=== PATIENT | male | born 1970 | race Caucasian/White ===

== ENCOUNTER 2017-05-25 19:08 | Emergency (ER) | payer OTHER ==
[~2017-05-25] VITALS: Ht 193 cm; Wt 113.4 kg
[~2017-05-25 19:08] MED LIST: 'PARAFON FORTE500 M1 PO; AMBIEN10 M1 PO; AMOXICILLIN500 MG PO; ANAPROX DS550 MG PO; ASPIRIN LOW DOS81 MG PO; ASPIRIN162 MG PO; DAYPRO600 M1 PO; HYDROCHLOROTH12.5 M3 PO; HYDROCODONE BIT1 T11 PO; IBU-8800 MG PO; METOPROLOL25 MG PO; NAPROSYN500 MG PO; ROBAXIN750 MG PO; VICODIN 500 MG-1 TAB PO; ZANTAC 150150 MG PO; ZOFRAN4 MG PO
[2017-05-25 19:16] VITALS: BP 158/78
== END 2017-05-26 02:32 | disposition home or self-care (01) ==
LOC: ED 19:08
DX: S91.031A Puncture wound without foreign body, right ankle, initial encounter (principal); L03.115 Cellulitis of right lower limb; F17.200 Nicotine dependence, unspecified, uncomplicated; Z23 Encounter for immunization; Z79.899 Other long term (current) drug therapy; W22.8XXA Striking against or struck by other objects, initial encounter; Y93.89 Activity, other specified; Y92.89 Other specified places as the place of occurrence of the external cause; Y99.8 Other external cause status

== ENCOUNTER 2018-04-13 11:09 | Emergency (ER) | payer OTHER ==
[~2018-04-13] VITALS: Ht 193 cm; Wt 112.5 kg
[2018-04-13 11:11] VITALS: BP 144/77
== END 2018-04-13 12:22 | disposition home or self-care (01) ==
LOC: ED 11:09
DX: S39.013A Strain of muscle, fascia and tendon of pelvis, initial encounter (principal); R03.0 Elevated blood-pressure reading, without diagnosis of hypertension; F17.200 Nicotine dependence, unspecified, uncomplicated; Z79.82 Long term (current) use of aspirin; Z98.890 Other specified postprocedural states; X58.XXXA Exposure to other specified factors, initial encounter; Y93.89 Activity, other specified; Y92.89 Other specified places as the place of occurrence of the external cause; Y99.8 Other external cause status

== ENCOUNTER 2018-06-27 13:06 | Emergency (ER) | payer OTHER ==
[~2018-06-27] VITALS: Ht 193 cm; Wt 113.4 kg
[2018-06-27 13:09] VITALS: BP 160/88
[2018-06-27] MEDS ORDERED: ATORVASTATIN CA20 M1 PO (13:14)
[2018-06-27] MEDS ORDERED: LISINOPRIL-HCT1 EACH PO (13:14)
[2018-06-27] MEDS ORDERED: GOOD NEIGHBOR M25 M1 PO (13:57)
== END 2018-06-27 14:04 | disposition home or self-care (01) ==
LOC: ED 13:06
DX: H81.10 Benign paroxysmal vertigo, unspecified ear (principal); I10 Essential (primary) hypertension; G89.29 Other chronic pain; F17.210 Nicotine dependence, cigarettes, uncomplicated; Z79.899 Other long term (current) drug therapy; Z90.49 Acquired absence of other specified parts of digestive tract

== ENCOUNTER 2019-01-02 16:16 | Inpatient (IN) | payer OTHER ==
[~2019-01-02] VITALS: Ht 193 cm; Wt 120.4 kg
--- NOTE | ~2019-01-02 | EKG ---
[place], [place] ELECTROCARDIOGRAM REPORT NAME: DAYTON LOPES UNIT #: [id number] ROOM: 405 DOCTOR: GRAY DRAFT REPORT BIRTHDATE: [birth year] [facility] Test Date: 2019-01-02 Test Time: 23:09:09 Pat Name: DAYTON LOPES Department: Room: 405 Gender: M Director Of Development And Marketing: SS RESP : 1970 Requested By: MARILOU GUERRA PA-C Order Number: [id number] Reading MD: Carola Ornelas Measurements Intervals [place] Rate: 72 P: 17 GA: 219 QRS: 46 QRSD: 112 T: 49 QT: 417 QTc: 457 Interpretive Statements Sinus rhythm Prolonged [place] interval Borderline intraventricular conduction delay No previous ECG available for comparison Electronically Signed On 01-04-2019 11:03:25 PDT by Carola Ornelas CM:EKGRPT:ELECTROCARDIOGRAM REPORT [id number] 1103 MARILOU GUERRA PA-C EPIPHANY DRAFT REPORT MARILOU GUERRA PA-C
--- NOTE | ~2019-01-02 | CON ---
[place], [place] REPORT OF CONSULTATION [id number] UN[facility] #: [id number] ROOM: 405 DOCTOR: ROBERTO TORRESMAYANK BIRTHDATE: [birth year] DOS: 01/03/2019 REASON FOR CONSULTATION: Abnormal CT chest with coronary calcification and also intermittent chest pains. HISTORY OF PRESENT ILLNESS: The patient is a 48-year-old gentleman with a history of hypertension, dyslipidemia presented to the Emergency Room with intermittent sharp chest pain for the past 2-3 days. This pain comes with moving his left arm and with rest, otherwise with exertion. This pain also gets worse with deep breath. There is no radiation. The patient had a left ulnar nerve surgery recently. No associated symptoms with the chest pains. No shortness of breath. No PND, no orthopnea, but the patient did have occasional heart palpitations, but no dizziness. No fever or chills. No nausea, vomiting, or diarrhea. REVIEW OF SYSTEMS: Review of 10 systems negative except as mentioned above. PAST MEDICAL HISTORY: 1. Hypertension. 2. Dyslipidemia. 3. Non-morbid obesity. 4. Fatty liver. 5. History of deep venous thrombosis, non-provoked. PAST SURGICAL HISTORY: History of knee surgery, history of left ulnar nerve surgery. ALLERGIES TO MEDICATIONS: Reviewed. FAMILY HISTORY: Father has diabetes and heart failure. Mother, unknown history. The patient does not talk to her. SOCIAL HISTORY: The patient does smoke, does not use illicit drugs, and does not drink alcohol. HOME MEDICATIONS: Reviewed. PHYSICAL EXAMINATION: VITAL SIGNS: Blood pressure 146/72, pulse 74, respiration is 20. Weight 120.4 kilos, BMI 32.3. GENERAL: Alert, comfortable, in no acute distress. HEENT: Pupils round, equal. No jaundice. Tongue was moist and pharynx clear. NECK: Supple, no distended neck veins, no carotid bruit. CHEST: Symmetrical, nontender. LUNGS: Clear to auscultation bilaterally. HEART: Regular rhythm, no S3, no palpable thrills. ABDOMEN: Benign, nontender. Bowel sounds normal. EXTREMITIES: Showed no edema. Distal pulses palpable. SKIN: Warm and dry. No cyanosis, no clubbing. RECTAL: Deferred. [place], [place] REPORT OF CONSULTATION NAME: DAYTON LOPES UNIT #: [id number] ROOM: 405 DOCTOR: ROBERTO TORRES,MAYANK BIRTHDATE: [birth year] GENITOURINARY: Deferred. NEUROLOGIC: Alert, oriented. No focal neurologic deficit. MUSCULOSKELETAL: No joint tenderness or swelling. The patient had healed surgical scar at the left elbow. REVIEW OF THE DIAGNOSTIC TESTS: EKG showed sinus rhythm, first degree AV block. Cardiac enzymes were unremarkable. CBC is unremarkable. Hemoglobin A1c is 6.1. CT of the chest showed advanced coronary calcifications, no pulmonary emboli. IMPRESSION: 1. Intermittent chest pain, atypical, myocardial infarction ruled out. 2. Abnormal CT of the coronary calcifications. 3. Hypertension. 4. Tobacco use. 5. Non-morbid obesity. 6. Dyslipidemia. 7. Fatty liver by CAT scan. 8. History of deep venous thrombosis, unprovoked, postoperative. RECOMMENDATIONS: 1. Lexiscan stress test today to rule out ischemia due to his symptoms, CAD risk factors, and also abnormal CT showing coronary calcifications. 2. Risk factor modification, especially to diet, exercise, and weight loss as well as to quit smoking discussed. 3. If the stress test done and 2D echo unremarkable, the patient will be discharged home today. If the stress study showed irreversible ischemia, I would discusse with him regarding cardiac catheterization. 4. No family at bedside at the time of examination. MAYANK MEJIA MD CM:CONSTR:REPORT OF CONSULTATION 1608 01/04/19 0103 interface
--- NOTE | ~2019-01-02 | EKG ---
[place], [place] ELECTROCARDIOGRAM REPORT NAME: DAYTON LOPES UNIT #: [id number] ROOM: 405 DOCTOR: GRAY DRAFT REPORT BIRTHDATE: [birth year] [facility] Test Date: 2019-01-02 Test Time: 19:50:04 Pat Name: DAYTON LOPES Department: Room: 405 Gender: M Pediatric Dermatologist: Jenifer Tong : 1970 Requested By: MARILOU GUERRA PA-C Order Number: [id number] Reading MD: Carola Ornelas Measurements Intervals [place] Rate: 76 P: 32 [place]: 298 QRS: 40 QRSD: 117 T: 49 QT: 408 QTc: 459 Interpretive Statements Sinus rhythm Prolonged [place] interval Nonspecific intraventricular conduction delay No previous ECG available for comparison Electronically Signed On 01-04-2019 11:00:27 PDT by Carola Ornelas CM:EKGRPT:ELECTROCARDIOGRAM REPORT 1950 1100 MARILOU GUERRA PA-C EPIPHANY DRAFT REPORT MARILOU GUERRA PA-C
--- NOTE | ~2019-01-02 | ST ---
[place], [place] EXERCISE STRESS TEST REPORT NAME: DAYTON LOPES [facility] #: [id number] UNIT #: [id number] ROOM: 405 DOCTOR: ROBERTO TORRES,MAYANK BIRTHDATE: [birth year] DOS: 01/03/2019 LEXISCAN STRESS TEST REASON FOR TEST: Chest pain. PHYSICAL EXAMINATION NECK: Supple. LUNGS: Clear anteriorly. HEART: Regular. PROTOCOL: Lexiscan protocol. Maximum heart rate of 111 and peak blood pressure 134/70. SYMPTOMS: The patient is chest pain free. EKG: Resting EKG showed sinus rhythm. Stress EKG showed no ischemia, no arrhythmias. CONCLUSION: The patient is chest pain free. EKG nonischemic. POST-STRESS COMPLICATIONS: None. The patient received a total of 0.4 mg Lexiscan. MAYANK MEJIA MD CM:STRESS:EXERCISE STRESS TEST REPORT 1604 0044 MAYANK MEJIA MD
--- NOTE | ~2019-01-02 | EKG ---
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
[~2019-01-02 16:16] MED LIST changes: +ATORVASTATIN CA20 M1 PO; +GOOD NEIGHBOR M25 M1 PO; +LISINOPRIL-HCT1 EACH PO
--- NOTE | 2019-01-02 16:50 | NUR ---
PT TO ULTRASOUND VIA W/C.
--- NOTE | 2019-01-02 16:54 | NUR ---
EKG D/T ACS PROTOCOL. PT IS IN ULTRASOUND AT THIS TIME.
--- NOTE | 2019-01-02 17:10 | NUR ---
PT RETURNED TO ED FROM ULTRASOUND VIA W/C.
[2019-01-02 17:33] LABS: BASO # 0.1 10*3/uL (0.0-0.1); BASO % 0.9 % (0.0-1.0); EOS # 0.3 10*3/uL (0.0-0.4); EOS % 3.3 % (1.0-4.0); HEMATOCRIT 44.4 % (42.0-52.0); HEMOGLOBIN 15.1 g/dl (14.0-18.0); LYMPH # 3.1 10*3/uL (1.3-4.4); LYMPH % 34.6 % (27.0-41.0); MEAN CELL VOLUME 93.1 fl (80.0-94.0); MEAN CORPUSCULAR HGB 31.7 pg (27.0-31.0); MEAN PLATELET VOLUME 9.9 fl (9.6-12.3); MONO # 0.6 10*3/uL (0.1-1.0); MONO % 6.6 % (3.0-9.0); NEUT # 4.8 10*3/uL (2.3-7.9); NEUT % 54.3 % (47.0-73.0); PLATELET COUNT AUTOMATED 247 10*3/uL (130-400); RED BLOOD COUNT 4.77 10*6/uL (4.50-5.90); RED CELL DISTRI WIDTH 12.7 % (0-14.5); WHITE BLOOD COUNT 8.9 10*3/uL (4.8-10.8)
--- NOTE | 2019-01-02 17:48 | NUR ---
ACS PROTICOL WAS PUT IN ON PT. AFTER PT. WAS TAKEN TO ULTRA SOUND
[2019-01-02 18:48] LABS: INTERNATIONAL NORM RATIO 0.9 (2.0-3.5)
[2019-01-02 18:54] LABS: ALBUMIN 3.6 gm/dl (3.1-4.5); BUN 12 mg/dl (7-24); CHLORIDE 107 mmol/L (98-107); CREATININE 0.95 mg/dL (0.70-1.30); POTASSIUM 3.3 mmol/L (3.5-5.1); SGOT/AST 43 IU/L (3-35); SGPT/ALT 80 U/L (12-78); SODIUM 141 mmol/L (136-145)
[2019-01-02 18:58] LABS: ALKALINE PHOSPHATASE 59 U/L (45-117); TOTAL PROTEIN 6.2 gm/dL (6.4-8.2)
[2019-01-02 22:25] VITALS: BP 146/72
--- NOTE | 2019-01-02 22:25 | NUR ---
A 48, admitted to 4E, under the services of VARSHA Moss DO with a diagnosis of CALCIFICATION OF CORONARY ARTERY, CHEST PAIN. Chief complaint is CALF CRAMPS. Patient arrived via ambulatory from ER. Monitor applied. Initial assessment completed. Vital signs taken and recorded. VARSHA MOSS DO notified of admission to the unit. Orders received. See assessment for past medical history, medications and allergies. Patient and/or family oriented to unit. visitation policy reviewed. Clothing/patient valuable form completed. DANIEL IBRAHIM
--- NOTE | 2019-01-03 02:29 | NUR ---
DR. BROWN'S ANSWERING SERVICE NOTIFID OF CONSULT FOR PATIENT FOR CHEST PAIN.
[2019-01-03 06:29] LABS: BASO # 0.1 10*3/uL (0.0-0.1); EOS # 0.3 10*3/uL (0.0-0.4); EOS % 4.9 % (1.0-4.0); HEMATOCRIT 43.4 % (42.0-52.0); HEMOGLOBIN 14.7 g/dl (14.0-18.0); LYMPH # 2.5 10*3/uL (1.3-4.4); LYMPH % 36.8 % (27.0-41.0); MEAN CELL VOLUME 94.1 fl (80.0-94.0); MEAN CORPUSCULAR HGB 31.9 pg (27.0-31.0); MEAN CORPUSCULAR HGB CONC 33.9 g/dl (33.0-37.0); MEAN PLATELET VOLUME 9.8 fl (9.6-12.3); MONO # 0.6 10*3/uL (0.1-1.0); NEUT # 3.3 10*3/uL (2.3-7.9); NEUT % 48.2 % (47.0-73.0); PLATELET COUNT AUTOMATED 226 10*3/uL (130-400); RED BLOOD COUNT 4.61 10*6/uL (4.50-5.90); RED CELL DISTRI WIDTH 12.9 % (0-14.5); WHITE BLOOD COUNT 6.8 10*3/uL (4.8-10.8)
[2019-01-03 06:59] LABS: ALBUMIN 3.4 gm/dl (3.1-4.5); BUN 11 mg/dl (7-24); CHLORIDE 112 mmol/L (98-107); POTASSIUM 4.2 mmol/L (3.5-5.1); SODIUM 143 mmol/L (136-145)
[2019-01-03 07:10] LABS: ALKALINE PHOSPHATASE 54 U/L (45-117); CHOLESTEROL 122 mg/dL (<200); CREATININE 0.95 mg/dL (0.70-1.30); HDL CHOLESTEROL 35 mg/dl (40-60); LDL CHOLESTEROL 53 mg/dL (9-159); SGOT/AST 37 IU/L (3-35); SGPT/ALT 80 U/L (12-78); TOTAL PROTEIN 5.9 gm/dL (6.4-8.2); TRIGLYCERIDES 169 mg/dl (<150); VLDL CHOLESTEROL 34 mg/dL (6-40)
--- NOTE | 2019-01-03 09:05 | NUR ---
INFORMED CONSENT OBTAINED FOR A LEXISCAN STRESS TEST WITH DR. MEJIA. RESTING EKG NSR PROLONGED MS INTERVAL, HT RT OF 72 WITH A BP OF 106/68. LUNG SOUNDS CLEAR, POX 99% VIA RA. COMPLETED ONE MINUTE OF LEXISCAN PROTOCOL RECEIVING LEXISCAN 0.4 MG OVER 10 SECONDS. C/O "WARM" FEELING THAT WAS RELEIVED IN RECOVERY. HAD A PEAK HT RT OF 95 WITH A BP OF 130/70. LAST RECOVERY HT RT OF 92 WITH A BP OF 135/70. AWAIITNG NUCLEAR IMAGING IN STABLE CONDITION.
--- NOTE | 2019-01-03 10:45 | NUR ---
Maintenance Mechanic Telephone in to talk to patient. Patient states lives at home with . There are few steps in the home. Physician: eitan [facility] health services: none Patient's level of ADLs: INDEPENDENT Patient has working utilities: all working DME: none Follow-up physician's appointment after d/c: will be made by hospitalist nurse director upon discharge Does patient want to access PORTAL?: no Discharge plan discussed with patient's , patient was having testing done. patient lives at home with , he is independent in adls and ambualtion, works, drives, states patient will be going home when able and denies any home needs. JACEK ABDUL
[2019-01-03 12:00] VITALS: BP 130/75
[2019-01-03 16:00] VITALS: BP 149/71
[2019-01-03 20:00] VITALS: BP 146/80
--- NOTE | 2019-01-03 23:05 | NUR ---
PATIENT NOTIFIED OF NPO STATUS AT MIDNIGHT. NO S/S OF DISTRESS. CALL LIGHT WITHIN REACH. DENIES ANY DISCOMFORTS AT THIS TIME.
[2019-01-04] VITALS: BP 143/80
--- NOTE | 2019-01-04 06:35 | NUR ---
PATIENT REMAINS NPO, DESPITE ATTEMPTING TO CONVINCE AIDES TO BRING HIM COFFEE. HAVE NOT RECEIVED A TIME ON TRANSFER TO [facility] AT THIS TIME. PATIENT RESTING COMFORTABLY IN HIS BED, NO S/S OF DISTRESS. CALL LIGHT WITHIN REACH.
[2019-01-04 08:00] VITALS: BP 142/78
--- NOTE | 2019-01-04 08:08 | NUR ---
PATIENT TRANSFERED TO [facility] FOR HEART CATH WITH [facility] FAMILY AT BEDSIDE.
--- NOTE | 2019-01-04 08:14 | NUR ---
nurse to nurse report given.
[2019-04-07] MEDS ORDERED: ASPIRIN81 M1 PO (10:53)
[2019-04-07] MEDS ORDERED: COZAAR50 M1 PO (10:53)
[2019-04-07] MEDS ORDERED: Clopidogrel75 MG PO (10:53)
[2019-04-07] MEDS ORDERED: METOPROLOL25 MG PO (10:54)
[2019-04-07] MEDS ORDERED: LIPITOR40 MG PO (10:54)
== END 2019-01-04 08:08 | disposition other institution (70) | DRG 313 ==
LOC: ED 16:16 → 4E 21:03 → EDHOLD 21:03 → 4E 22:20
PROVIDERS: Family Medicine; Physician Assistant; ADMIT Internal Medicine
PROC: 4A02XM4 Measurement of Cardiac Total Activity, External Approach (ICD-10-PCS; principal; 2019-01-03)
PROC: 3E073KZ Introduction of Other Diagnostic Substance into Coronary Artery, Percutaneous Approach (ICD-10-PCS; 2019-01-03)
DX: R07.89 Other chest pain (principal); I25.119 Atherosclerotic heart disease of native coronary artery with unspecified angina pectoris; E78.5 Hyperlipidemia, unspecified; R00.2 Palpitations; E87.6 Hypokalemia; R74.0 Nonspecific elevation of levels of transaminase and lactic acid dehydrogenase [LDH]; E66.8 Other obesity; E78.00 Pure hypercholesterolemia, unspecified; K76.0 Fatty (change of) liver, not elsewhere classified; I10 Essential (primary) hypertension; Z86.718 Personal history of other venous thrombosis and embolism; Z82.49 Family history of ischemic heart disease and other diseases of the circulatory system; Z90.49 Acquired absence of other specified parts of digestive tract; Z83.3 Family history of diabetes mellitus; Z79.899 Other long term (current) drug therapy; Z68.32 Body mass index [BMI] 32.0-32.9, adult; Z72.0 Tobacco use; Z71.6 Tobacco abuse counseling; Z71.3 Dietary counseling and surveillance; E87.8 Other disorders of electrolyte and fluid balance, not elsewhere classified

== ENCOUNTER 2019-01-06 18:15 | Emergency (ER) | payer OTHER ==
[~2019-01-06] VITALS: Ht 193 cm; Wt 117.9 kg
[2019-01-06 18:16] VITALS: BP 158/84
[2019-04-07] MEDS ORDERED: COZAAR50 M1 PO (10:53)
[2019-04-07] MEDS ORDERED: Clopidogrel75 MG PO (10:53)
[2019-04-07] MEDS ORDERED: ASPIRIN81 M1 PO (10:53)
[2019-04-07] MEDS ORDERED: LIPITOR40 MG PO (10:54)
[2019-04-07] MEDS ORDERED: METOPROLOL25 MG PO (10:54)
== END 2019-01-06 22:19 | disposition home or self-care (01) ==
LOC: ED 18:15
DX: R22.31 Localized swelling, mass and lump, right upper limb (principal); F17.200 Nicotine dependence, unspecified, uncomplicated; Z90.49 Acquired absence of other specified parts of digestive tract; Z79.899 Other long term (current) drug therapy; Z79.82 Long term (current) use of aspirin; Z98.890 Other specified postprocedural states; Z79.01 Long term (current) use of anticoagulants; Z86.718 Personal history of other venous thrombosis and embolism

== ENCOUNTER → 2019-05-12 | Outpatient (CLI) | payer OTHER ==
[~2019-05-12] MED LIST changes: +ALPRAZOLAM0.5 M3 PO; +ASPIRIN81 M1 PO; +BUDEPRION XL150 MG PO; +COZAAR50 M1 PO; +Clopidogrel75 MG PO; +FENOFIBRATE MI134 MG PO; +FENOFIBRATE130 M1 PO; +LIPITOR40 MG PO; +PROAIR HFA8.5 GM INH
[2019-05-12 13:25] LABS: CHOLESTEROL 125 mg/dL (<200); HDL CHOLESTEROL 37 mg/dl (40-60); LDL CHOLESTEROL 39 mg/dL (9-159); TRIGLYCERIDES 245 mg/dl (<150); VLDL CHOLESTEROL 49 mg/dL (6-40)
== END | disposition home or self-care (01) ==
LOC: LAB 12:27
PROVIDERS: Internal Medicine Cardiovascular Disease
DX: E78.5 Hyperlipidemia, unspecified (principal); I25.10 Atherosclerotic heart disease of native coronary artery without angina pectoris

== ENCOUNTER 2019-06-03 09:29 | Inpatient (IN) | payer OTHER ==
[~2019-06-03] VITALS: Ht 195.5 cm; Wt 117.7 kg
--- NOTE | ~2019-06-03 | EKG ---
[place], [place] ELECTROCARDIOGRAM REPORT NAME: DAYTON LOPES UNIT #: [id number] ROOM: 505 DOCTOR: GRAY DRAFT REPORT BIRTHDATE: [birth year] [facility] Test Date: 2019-06-03 Test Time: 10:09:21 Pat Name: DAYTON LOPES Department: Room: 505 Gender: M Teletype Telegrapher: : 1970 Requested By: ANTONELLA YATES Order Number: [id number] Reading MD: Alexey Forte MD Measurements Intervals [place] Rate: 55 P: 19 SD: 228 QRS: 20 QRSD: 106 T: 27 QT: 430 QTc: 412 Interpretive Statements Sinus rhythm Prolonged SD interval Electronically Signed On 06-03-2019 16:07:11 PDT by Alexey Forte MD CM:EKGRPT:ELECTROCARDIOGRAM REPORT 1009 1607 ANTONELLA YATES MD EPIPHANY DRAFT REPORT ANTONELLA YATES MD
--- NOTE | ~2019-06-03 | CON ---
[place], [place] REPORT OF CONSULTATION NAME: DAYTON LOPES [facility] #: [id number] UNIT #: [id number] ROOM: 505 DOCTOR: GALA GOYAL BIRTHDATE: [birth year] DOS: 06/03/2019 CARDIOLOGY CONSULTATION REASON FOR CONSULTATION: Chest pain. REQUESTING PHYSICIAN: Dr. Angelo Haji. HISTORY OF PRESENT ILLNESS: The patient is a 48-year-old gentleman with a history of known coronary artery disease, status post PCI to the left circumflex in December of this year after an abnormal stress test suggesting inferolateral ischemia. He has been on aspirin and clopidogrel for dual antiplatelet therapy since that time. The patient states he gets chronic intermittent and sharp chest pains on and off, related to some rib injuries that he has had in the past. He states he has been getting short of breath with exertion ever since his stent. He did quit smoking after his stent. Today when he woke up, he just felt that something was not quite right. He is a little bit dizzy. He went for a walk and felt some sharp left-sided chest pain, which was not different than his usual pain. It is in the left chest from the center radiates around to the lateral ribs. Only last a few seconds and is sharp, comes and goes. The chest pain itself was not too different because he was feeling unwell and dizzy. This prompted him to present to the ER for evaluation. Cardiac troponins were found to be mildly elevated 0.06 and 0.057 range. There are no acute EKG changes. He otherwise denies syncope or lower extremity edema. REVIEW OF SYSTEMS: Remainder of the review of systems is negative except as described above. PAST MEDICAL HISTORY: 1. Coronary artery disease as described, status post recent PCI to the circumflex in 12/2018. 2. Hypertension. 3. Hyperlipidemia. 4. History of DVT. PAST SURGICAL HISTORY: Gallbladder, shoulder, and knee surgery. FAMILY HISTORY: No history of premature coronary artery disease. SOCIAL HISTORY: He is . He states he quit smoking 6 months ago. Denies alcohol or drug use. HOME MEDICATIONS: Include aspirin 81 mg daily, atorvastatin 40 mg daily, clopidogrel 75 mg daily, fenofibrate 130 mg daily, losartan 50 mg daily, metoprolol tartrate 25 mg p.o. b.i.d. ALLERGIES: No known drug allergies. PHYSICAL EXAMINATION: VITAL SIGNS: He is afebrile, pulse 59, respirations 16, blood pressure 131/77, [place], [place] REPORT OF CONSULTATION NAME: DAYTON LOPES UNIT #: [id number] ROOM: [facility] DOCTOR: GALA GOYAL BIRTHDATE: [birth year] and saturating 95% on room air. GENERAL APPEARANCE: Well-appearing middle-aged male, awake, alert, no distress. ENT: Moist mucous membranes. NECK: Supple. JVP normal. No carotid bruits. RESPIRATORY: Lungs are clear. CARDIOVASCULAR: Regular rhythm. This was normal rate. No murmurs. ABDOMEN: Positive bowel sounds. Soft and nontender. No organomegaly. EXTREMITIES: Warm, well perfused. Moves all extremities. There is no edema. SKIN AND COLOR: No lesions or rashes. NEUROLOGIC: Nonfocal. LABORATORY DATA: Hemoglobin 14.4, platelets 228, potassium 4.4, creatinine 0.96. Troponin has minimally elevated at 0.062, 0.063, and 0.057. EKG shows sinus bradycardia with 54 beats per minute. There is a first degree AV block, no acute ST or T-wave abnormalities. X-ray of the ribs showed no acute pulmonary disease and no left rib fracture. Left lower extremity Doppler showed no evidence of DVT. IMPRESSION: 1. Chest pain, atypical, however, in the setting of mildly elevated biomarkers and known coronary artery disease. 2. Known CAD, status post circumflex PCI after abnormal stress test in December of this year. 3. Hypertension. 4. Hyperlipidemia. 5. History of deep venous thrombosis. RECOMMENDATIONS: 1. Chest pain is rather atypical, however, in the setting of mildly abnormal biomarkers and known CAD, I will be compelled to pursue a myocardial perfusion study. 2. Continue current cardiac medications and we will arrange for nuclear stress test tomorrow. He does not believe he will be able to exercise because of his knee arthritis. Stress test is negative, he could be discharged without further workup from cardiology standpoint. Further recommendations pending outcome of the above. Dr. GALA GOYAL MD CM:CONSTR:REPORT OF CONSULTATION 1817 06/04/19 0230 interface
--- NOTE | ~2019-06-03 | EKG ---
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
--- NOTE | ~2019-06-03 | EKG ---
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
--- NOTE | ~2019-06-03 | ST ---
[place], [place] EXERCISE STRESS TEST [facility]PORT [id number] #: [id number] ROOM: 505 DOCTOR: GALA GOYAL BIRTHDATE: [birth year] DOS: 06/04/2019 INDICATION: Chest pain, coronary artery disease. PROTOCOL: Exercise SPECT myocardial perfusion imaging. Baseline EKG showed sinus bradycardia with a rate of 58 beats per minute with normal axis, normal intervals, nonspecific T-wave changes. Baseline blood pressure 118/68. The patient exercised for a total of 10 minutes achieving a peak heart rate of 151, which is 88% of the predicted maximum. Peak blood pressure 180/58. Total workload achieved was 10 METs, average for age. No chest pain was reported during exercise. Stress EKG showed no evidence of ischemia and no arrhythmias were noted. There were rare PVCs noted. Rare couplet noted as well. IMPRESSION: 1. No evidence of ischemia on stress EKG. 2. Normal blood pressure response to exercise. 3. Normal heart rate recovery. 4. Average functional capacity. 5. Nuclear images to be reported separately. Dr. GALA GOYAL MD CM:STRESS:EXERCISE STRESS TEST REPORT [id number] GALA GOYAL
--- NOTE | ~2019-06-03 | PR ---
[place], [place] PROGRESS NOTE NAME: DAYTON LOPES [facility] #: [id number] UNIT #: [id number] ROOM: 505 DOCTOR: GALA GOYAL BIRTHDATE: [birth year] DOS: 06/04/2019 SUBJECTIVE: The patient is being seen in followup for chest pain and coronary artery disease. The patient was seen in the stress lab this morning. He was still having intermittent left-sided chest pains. He did well on the treadmill, went about 10 minutes without EKG changes. Nuclear images did, however, show inferior ischemia, which appeared worse than his stress test from December prior to his stent. He denies shortness of breath. He states he feels now as he thinks about it he has been getting more exertional chest pain when he mows the lawn, but this has been going on for a few months even since his stent was put in. OBJECTIVE: VITAL SIGNS: Afebrile, pulse 60, respirations 18, blood pressure 129/76, saturating 98% on room air. GENERAL APPEARANCE: Middle-aged male sitting up in bed, in no distress. NECK: Supple. JVP normal. No carotid bruits. RESPIRATORY: Lungs are clear. CARDIOVASCULAR: Regular rhythm with a normal rate. No murmurs. ABDOMEN: Positive bowel sounds. Soft, nontender. EXTREMITIES: Warm, well perfused. There is no edema. LABORATORY DATA: Hemoglobin is normal. Creatinine 0.94. Hemoglobin A1c 5.8%. Troponins were minimally elevated, but stayed flat in the range of 0.06 and 0.05. CURRENT CARDIAC MEDICATIONS: Include losartan 50 mg daily, clopidogrel 75 mg daily, aspirin 81 mg daily, metoprolol tartrate 25 mg p.o. b.i.d., atorvastatin 40 mg daily. Heart catheterization from December 2018 showed the following: Left main free of stenosis. LAD showed mild stenosis. Diagonal branch was completely occluded with left to left collaterals. Circumflex showed an 80% stenosis extending into an OM. RCA was dominant with mild mid segment stenosis. The circumflex lesion was treated with a 2.5 x 28 mm Xience. IMPRESSION: 1. Chest pain, somewhat atypical, but also now states that it has been happening more when he mows the lawn. 2. Stress test now showing inferior ischemia. 3. Mildly elevated cardiac biomarkers. 4. History of PCI to the left circumflex in December 2018. 5. Hypertension. 6. Hyperlipidemia. 7. History of deep venous thrombosis. RECOMMENDATIONS: 1. Given the appearance of inferior ischemia that actually looks worse compared [place], [place] PROGRESS NOTE [id number] #: [id number] ROOM: [facility] DOCTOR: GALA GOYAL BIRTHDATE: [birth year] to his stress test from December, I do recommend proceeding with cardiac catheterization. He did have mildly elevated biomarkers and somewhat funny sounding chest pain syndrome over the past few months, but it does sound like it is exertional. Continue his current medical therapy with dual antiplatelet therapy, as well as metoprolol, lisinopril, and statin. 2. Discussed risks and benefits of cardiac catheterization including possible outcomes, which may include medical management, PCI, or bypass surgery. The patient understands and agreed to proceed. [facility] GALA GOYAL MD CM:PNTRANS 1653 GALA GOYAL 06/05/19 0132 interface
[~2019-06-03 09:29] MED LIST changes: -ALPRAZOLAM0.5 M3 PO; -BUDEPRION XL150 MG PO; -FENOFIBRATE MI134 MG PO; -FENOFIBRATE130 M1 PO; -PROAIR HFA8.5 GM INH
[2019-06-03 09:30] VITALS: BP 175/84
[2019-06-03 10:01] VITALS: BP 166/91; BP 166/94
[2019-06-03 10:13] LABS: BASO # 0.1 10*3/uL (0.0-0.1); BASO % 1.1 % (0.0-1.0); EOS # 0.2 10*3/uL (0.0-0.4); HEMATOCRIT 42.8 % (42.0-52.0); HEMOGLOBIN 14.4 g/dl (14.0-18.0); LYMPH # 1.6 10*3/uL (1.3-4.4); MEAN CELL VOLUME 94.3 fl (80.0-94.0); MEAN CORPUSCULAR HGB 31.7 pg (27.0-31.0); MEAN CORPUSCULAR HGB CONC 33.6 g/dl (33.0-37.0); MEAN PLATELET VOLUME 9.3 fl (9.6-12.3); MONO # 0.5 10*3/uL (0.1-1.0); MONO % 8.5 % (3.0-9.0); NEUT % 57.2 % (47.0-73.0); PLATELET COUNT AUTOMATED 228 10*3/uL (130-400); RED BLOOD COUNT 4.54 10*6/uL (4.50-5.90); RED CELL DISTRI WIDTH 12.2 % (0-14.5); WHITE BLOOD COUNT 5.3 10*3/uL (4.8-10.8)
[2019-06-03 10:22] LABS: ACT PARTIAL THROMBO TIME 26.2 SECONDS (20.0-32.1)
[2019-06-03 10:27] LABS: BUN 12 mg/dl (7-24); CHLORIDE 109 mmol/L (98-107); CREATININE 0.96 mg/dL (0.70-1.30); POTASSIUM 4.4 mmol/L (3.5-5.1); SODIUM 141 mmol/L (136-145)
[2019-06-03 10:37] LABS: TROPONIN I 0.062 ng/ml (<0.045)
--- NOTE | 2019-06-03 10:38 | NUR ---
DR BRISENO AWARE OF CRITICAL TROPONIN OF 0.062.
[2019-06-03 11:00] VITALS: BP 169/91
--- NOTE | 2019-06-03 11:00 | NUR ---
A 48, admitted to , under the services of LISA Mcghee DO with a diagnosis of CHEST PAIN. Chief complaint is CHEST PAIN. Patient arrived via stretcher from ER. Monitor applied. Initial assessment completed. Vital signs taken and recorded. LISA MCGHEE DO notified of admission to the unit. Orders received. See assessment for past medical history, medications and allergies. Patient and/or family oriented to unit. [facility] visitation policy reviewed. Clothing/patient valuable form completed. MOISES GARCÍA
[2019-06-03] MEDS ORDERED: FENOFIBRATE130 M1 PO (11:21)
[2019-06-03 12:00] VITALS: BP 132/81
[2019-06-03 16:00] VITALS: BP 131/77
[2019-06-03 20:00] VITALS: BP 122/73
--- NOTE | 2019-06-03 20:36 | NUR ---
24 HR chart check completed.
--- NOTE | 2019-06-03 21:00 | NUR ---
RESTING IN BED WITH NO ACUTE DISTRESS NOTED. RESPIRATIONS EASY. LUNGS DIMINISHED, CLEAR. PULSE OX 98% RA. DENIES CHEST PAIN. OFFERED AND EDUCATED REGARDING TEDS, DECLINES. CALL LIGHT WITHIN REACH. NO VOICED COMPLAINTS
--- NOTE | 2019-06-03 23:00 | NUR ---
NPO STATUS REVIEWED FOR STRESS TEST IN AM, VOICED UNDERSTANDING.
[2019-06-04] VITALS: BP 130/79
--- NOTE | 2019-06-04 | NUR ---
SLEEPING. NO DISTRESS NOTED. RESPIRATIONS EASY. VSS. CALL LIGHT WITHIN REACH
[2019-06-04] MEDS ORDERED: FENOFIBRATE MI134 MG PO (00:40)
[2019-06-04] MEDS ORDERED: BUDEPRION XL150 MG PO (00:41)
[2019-06-04] MEDS ORDERED: PROAIR HFA8.5 GM INH (00:41)
[2019-06-04] MEDS ORDERED: ALPRAZOLAM0.5 M3 PO (00:42)
--- NOTE | 2019-06-04 06:00 | NUR ---
SLEPT THROUGHOUT NIGHT WITH NO DISTRESS NOTED. RESPIRATIONS EASY. NO C/O CHEST PAIN. NPO STATUS MAINTAINED FOR STRESS TEST.
[2019-06-04 06:24] LABS: BASO # 0.1 10*3/uL (0.0-0.1); BASO % 0.8 % (0.0-1.0); EOS # 0.3 10*3/uL (0.0-0.4); EOS % 4.2 % (1.0-4.0); HEMATOCRIT 45.7 % (42.0-52.0); HEMOGLOBIN 15.1 g/dl (14.0-18.0); LYMPH # 2.6 10*3/uL (1.3-4.4); LYMPH % 36.2 % (27.0-41.0); MEAN CORPUSCULAR HGB 31.1 pg (27.0-31.0); MONO # 0.7 10*3/uL (0.1-1.0); MONO % 9.3 % (3.0-9.0); NEUT # 3.5 10*3/uL (2.3-7.9); NEUT % 49.1 % (47.0-73.0); PLATELET COUNT AUTOMATED 234 10*3/uL (130-400); RED BLOOD COUNT 4.86 10*6/uL (4.50-5.90); RED CELL DISTRI WIDTH 12.2 % (0-14.5); WHITE BLOOD COUNT 7.1 10*3/uL (4.8-10.8)
[2019-06-04 06:35] LABS: ALBUMIN 4.1 gm/dl (3.1-4.5); ALKALINE PHOSPHATASE 55 U/L (45-117); BUN 12 mg/dl (7-24); CHLORIDE 111 mmol/L (98-107); CHOLESTEROL 114 mg/dL (<200); CREATININE 0.94 mg/dL (0.70-1.30); FREE T4 0.78 ng/dl (0.76-1.46); HDL CHOLESTEROL 40 mg/dl (40-60); LDL CHOLESTEROL 44 mg/dL (9-159); PHOSPHOROUS 3.4 mg/dL (2.5-4.9); POTASSIUM 4.1 mmol/L (3.5-5.1); SGOT/AST 27 IU/L (3-35); SGPT/ALT 64 U/L (12-78); SODIUM 143 mmol/L (136-145); TOTAL PROTEIN 6.8 gm/dL (6.4-8.2); TRIGLYCERIDES 151 mg/dl (<150); VLDL CHOLESTEROL 30 mg/dL (6-40)
[2019-06-04 07:23] LABS: VITAMIN D, 25-HYDROXY 17.7 ng/mL (30-100)
[2019-06-04 08:00] VITALS: BP 110/70
--- NOTE | 2019-06-04 09:08 | NUR ---
PATIENT TAKEN OFF FLOOR FOR STRESS TEST.
--- NOTE | 2019-06-04 10:00 | NUR ---
DR. GOYAL MET WITH PATIENT AND STRESS TEST SWITCHED TO EXERCISE CARDIOLITE. INFORMED CONSENT OBTAINED. RESTING EKG NSR WITH A SUPINE HR OF 62 WITH BP OF 118/68 AND HR OF 67 WITH BP OF 116/70 IN STANDING POSITION. PT COMPLETED 9:59 OF A ROGER PROTOCOL AND COMPLETED 59 SECONDS OF STAGE IV AT 4.2 MPH AND 16% GRADE. REACHED A PEAK HR OF 151 WHICH IS 88% OF PREDICTED MAX WITH A PEAK BP OF 180/58. TEST TERMINATED BECAUSE OF FATIGUE. HAD NO CHEST PAIN OR ANY EKG CHANGES. HAS AN OCCASIONAL PVC WITH COUPLETS. LAST RECOVERY HR OF 87 WITH BP OF 126/64. HAS AN AVERAGE EXERCISE TOLERANCE. TO NUCLEAR MEDICINE IN STABLE CONDITION FOR SCANNING.
[2019-06-04 12:00] VITALS: BP 126/78
--- NOTE | 2019-06-04 12:16 | NUR ---
Under Ground Miner in to talk to patient. Patient states lives at HOME with . There are 3 OUTSIDE steps in the home. Physician: SHADI Pharmacy: [facility] Home health services: NONE Patient's level of ADLs: INDEPENDENT Patient has working utilities: YS DME: NONE Follow-up physician's appointment after d/c: WILL BE MADE BY HOSPITALIST NURSE DIRECTOR ON DISCHARGE Does patient want to access PORTAL?: NO Discharge plan PT STATES HE LIVES AT HOME WITH HIS AND IS INDEPENDENT IN HIS CARE. PT HAS NO NEEDS ON DISCHARGE. WILL RETURN HOME. WILL TAKE HIM HOME.. YASIR LEWIS
--- NOTE | 2019-06-04 13:45 | NUR ---
CALLED REGARDING STRESS TEST RESULTS AND PLAN FOR PATIENT. HE IS GOING TO COME UP TO FLOOR TO TALK WITH PATIENT REGARDING POSSIBLE TRANSFER FOR CARDIAC CATH.
[2019-06-04 16:00] VITALS: BP 129/76
--- NOTE | 2019-06-04 16:49 | NUR ---
PT MEDICATED WITH XANAX PO AT HIS REQUEST FOR C/O ANXIETY ABOUT HEART CATH TOMORROW.
--- NOTE | 2019-06-04 17:44 | NUR ---
[facility] NOTIFIED OF NEED FOR TRANSPORT TO [facility] TOMORROW. THEY WILL PRESETTER OPERATOR PT AT 0645 IN AM TOMORROW.
--- NOTE | 2019-06-04 19:40 | NUR ---
24 HR chart check completed.
[2019-06-04 20:00] VITALS: BP 132/76
[2019-06-05] VITALS: BP 103/47; BP 108/64
--- NOTE | 2019-06-05 02:04 | NUR ---
Patient sleeping. Respirations relaxed and easy. Siderails up 2. [place] on. Monitored [address] YOKASTA GUZMAN
[2019-06-05 05:41] VITALS: BP 138/89
--- NOTE | 2019-06-05 06:38 | NUR ---
CALL PLACED TO [facility], SPOKE WITH GRETCHEN RN, NURSE TO NURSE REPORT GIVEN.
--- NOTE | 2019-06-05 07:00 | NUR ---
Discharge instructions reviewed with patient/family. Patient receptive and verbalizes understanding. Follow-up care arranged. Written instructions given to patient/family. MONITORED REMOVED, LEFT VIA [facility]. YOKASTA GUZMAN
== END 2019-06-05 07:05 | disposition other institution (70) | DRG 206 ==
LOC: ED 09:29 → 5E 10:44 → EDHOLD 10:44 → 5E 10:48
PROVIDERS: Emergency Medicine; Registered Nurse; ADMIT Internal Medicine
PROC: 4A02XM4 Measurement of Cardiac Total Activity, External Approach (ICD-10-PCS; principal; 2019-06-04)
PROC: 3E073KZ Introduction of Other Diagnostic Substance into Coronary Artery, Percutaneous Approach (ICD-10-PCS; 2019-06-04)
DX: M94.0 Chondrocostal junction syndrome [Tietze] (principal); I25.10 Atherosclerotic heart disease of native coronary artery without angina pectoris; R74.8 Abnormal levels of other serum enzymes; I10 Essential (primary) hypertension; Z95.5 Presence of coronary angioplasty implant and graft; G89.29 Other chronic pain; M25.562 Pain in left knee; E78.00 Pure hypercholesterolemia, unspecified; E78.5 Hyperlipidemia, unspecified; F41.9 Anxiety disorder, unspecified; Z86.718 Personal history of other venous thrombosis and embolism; Z79.82 Long term (current) use of aspirin; Z79.899 Other long term (current) drug therapy; Z90.49 Acquired absence of other specified parts of digestive tract; Z82.49 Family history of ischemic heart disease and other diseases of the circulatory system; Z83.3 Family history of diabetes mellitus; Z87.891 Personal history of nicotine dependence; E78.6 Lipoprotein deficiency

== ENCOUNTER 2019-10-08 15:20 | Emergency (ER) | payer OTHER ==
[~2019-10-08] VITALS: Ht 193 cm; Wt 117.9 kg
[~2019-10-08 15:20] MED LIST changes: +ALPRAZOLAM0.5 M3 PO; +BUDEPRION XL150 MG PO; +FENOFIBRATE MI134 MG PO; +FENOFIBRATE130 M1 PO; +PROAIR HFA8.5 GM INH
[2019-10-08 15:27] VITALS: BP 170/89
[2019-10-08 16:10] LABS: BASO # 0.1 10*3/uL (0.0-0.1); BASO % 0.9 % (0.0-1.0); EOS # 0.2 10*3/uL (0.0-0.4); EOS % 2.1 % (1.0-4.0); HEMOGLOBIN 14.2 g/dl (14.0-18.0); LYMPH % 25.9 % (27.0-41.0); MEAN CELL VOLUME 93.5 fl (80.0-94.0); MEAN CORPUSCULAR HGB 31.6 pg (27.0-31.0); MEAN CORPUSCULAR HGB CONC 33.8 g/dl (33.0-37.0); MEAN PLATELET VOLUME 9.5 fl (9.6-12.3); MONO # 0.6 10*3/uL (0.1-1.0); MONO % 7.7 % (3.0-9.0); NEUT # 4.7 10*3/uL (2.3-7.9); NEUT % 62.6 % (47.0-73.0); PLATELET COUNT AUTOMATED 236 10*3/uL (130-400); RED BLOOD COUNT 4.49 10*6/uL (4.50-5.90); RED CELL DISTRI WIDTH 12.3 % (0-14.5); WHITE BLOOD COUNT 7.5 10*3/uL (4.8-10.8)
[2019-10-08 16:32] LABS: ALBUMIN 4.2 gm/dl (3.1-4.5); ALKALINE PHOSPHATASE 50 U/L (45-117); BUN 14 mg/dl (7-24); CHLORIDE 111 mmol/L (98-107); CREATININE 1.04 mg/dL (0.70-1.30); POTASSIUM 3.6 mmol/L (3.5-5.1); SGOT/AST 33 IU/L (3-35); SGPT/ALT 82 U/L (12-78); SODIUM 142 mmol/L (136-145); TOTAL PROTEIN 6.9 gm/dL (6.4-8.2)
[2019-10-08 16:33] LABS: TROPONIN I 0.022 ng/ml (<0.045)
== END 2019-10-08 19:36 | disposition home or self-care (01) ==
LOC: ED 15:20
PROVIDERS: Nurse Practitioner Family
DX: B34.9 Viral infection, unspecified (principal); R00.2 Palpitations; M79.662 Pain in left lower leg; R53.83 Other fatigue; I10 Essential (primary) hypertension; F17.200 Nicotine dependence, unspecified, uncomplicated; Z79.899 Other long term (current) drug therapy; Z79.82 Long term (current) use of aspirin; Z86.718 Personal history of other venous thrombosis and embolism

== ENCOUNTER 2022-01-16 13:05 | Emergency (ER) | payer OTHER ==
[~2022-01-16] VITALS: Wt 1367.1 kg
[2022-01-16 13:17] VITALS: BP 159/51
[2022-01-16 13:40] LABS: BASO # 0.1 10*3/uL (0.0-0.1); BASO % 1.1 % (0.0-1.0); EOS # 0.5 10*3/uL (0.0-0.4); EOS % 7.5 % (1.0-4.0); LYMPH % 32.8 % (27.0-41.0); MEAN CELL VOLUME 91.1 fl (80.0-94.0); MEAN CORPUSCULAR HGB 31.2 pg (27.0-31.0); MEAN CORPUSCULAR HGB CONC 34.3 g/dl (33.0-37.0); MEAN PLATELET VOLUME 9.5 fl (9.6-12.3); MONO # 0.7 10*3/uL (0.1-1.0); MONO % 12.1 % (3.0-9.0); NEUT # 2.8 10*3/uL (2.3-7.9); PLATELET COUNT AUTOMATED 219 10*3/uL (130-400); RED BLOOD COUNT 4.39 10*6/uL (4.50-5.90); RED CELL DISTRI WIDTH 12.3 % (0-14.5); WHITE BLOOD COUNT 6.1 10*3/uL (4.8-10.8)
[2022-01-16 13:51] LABS: ACT PARTIAL THROMBO TIME 28.3 SECONDS (20.0-32.1)
[2022-01-16 14:02] LABS: ALKALINE PHOSPHATASE 81 U/L (45-117); BUN 12 mg/dl (7-24); CHLORIDE 111 mmol/L (98-107); CREATININE 0.81 mg/dL (0.70-1.30); POTASSIUM 3.8 mmol/L (3.5-5.1); SGOT/AST 33 IU/L (3-35); SGPT/ALT 66 U/L (12-78); SODIUM 142 mmol/L (136-145); TOTAL PROTEIN 6.6 gm/dL (6.4-8.2)
== END 2022-01-16 18:25 | disposition home or self-care (01) ==
LOC: ED 13:05
PROVIDERS: Emergency Medicine
DX: R07.9 Chest pain, unspecified (principal); I25.10 Atherosclerotic heart disease of native coronary artery without angina pectoris; I10 Essential (primary) hypertension; Z79.899 Other long term (current) drug therapy; Z79.82 Long term (current) use of aspirin; Z86.718 Personal history of other venous thrombosis and embolism; Z90.49 Acquired absence of other specified parts of digestive tract; Z98.890 Other specified postprocedural states; Z87.891 Personal history of nicotine dependence

== ENCOUNTER → 2022-12-05 | Outpatient (CLI) | payer OTHER ==
[2022-12-05 14:11] LABS: CHLORIDE 104 mmol/L (98-107); POTASSIUM 3.9 mmol/L (3.4-5.1)
[2022-12-05 14:12] LABS: BUN < 5 mg/dl (9-23)
== END | disposition home or self-care (01) ==
LOC: LAB 13:24
PROVIDERS: ATTEND Internal Medicine
DX: U07.1 COVID-19 (principal)

== ENCOUNTER → 2024-08-26 | Outpatient (CLI) | payer OTHER ==
[2024-08-26 11:52] LABS: BUN 13 mg/dl (9-23); CHLORIDE 108 mmol/L (98-107)
== END | disposition home or self-care (01) ==
LOC: LAB 10:40
PROVIDERS: ATTEND Internal Medicine
DX: E11.9 Type 2 diabetes mellitus without complications (principal)

== ENCOUNTER → 2025-02-10 | Outpatient (CLI) | payer OTHER ==
[2025-02-10 15:15] LABS: BASO # 0.1 10*3/uL (0.0-0.1); BASO % 0.7 % (0.0-1.0); EOS # 0.2 10*3/uL (0.0-0.4); EOS % 2.8 % (1.0-4.0); HEMATOCRIT 46.9 % (42.0-52.0); MEAN CELL VOLUME 94.9 fl (80.0-94.0); MEAN CORPUSCULAR HGB 31.8 pg (27.0-31.0); MEAN CORPUSCULAR HGB CONC 33.5 g/dl (33.0-37.0); MEAN PLATELET VOLUME 9.5 fl (9.6-12.3); MONO # 0.6 10*3/uL (0.1-1.0); MONO % 9.3 % (3.0-9.0); NEUT # 3.9 10*3/uL (2.3-7.9); NEUT % 56.8 % (47.0-73.0); PLATELET COUNT AUTOMATED 243 10*3/uL (130-400); RED BLOOD COUNT 4.94 10*6/uL (4.50-5.90); RED CELL DISTRI WIDTH 13.1 % (0-14.5); WHITE BLOOD COUNT 6.9 10*3/uL (4.8-10.8)
[2025-02-10 15:40] LABS: ACT PARTIAL THROMBO TIME 26.2 SECONDS (20.0-32.1)
[2025-02-10 15:45] LABS: ALKALINE PHOSPHATASE 57 U/L (46-116); BUN 16 mg/dl (9-23); CHLORIDE 105 mmol/L (98-107); POTASSIUM 4.1 mmol/L (3.4-5.1); SGPT/ALT 70 U/L (5-49); TOTAL PROTEIN 6.8 gm/dL (6.0-8.0)
[2025-02-10 16:47] LABS: BILIRUBIN Negative (Negative); BLOOD Negative (Negative); CLARITY Clear (Clear); COLOR Yellow (Yellow); GLUCOSE 3+ (Negative); KETONE Trace (Negative); LEUKO ESTERASE Negative (Negative); NITRITE Negative (Negative); PH 5.5 (4.5-8.0); SPECIFIC GRAVITY >= 1.030 (1.001-1.030)
[2025-02-10 17:07] LABS: MUCOUS TRACE; RBC 0-2 rbc/hpf (0-2); WBC 0-2 wbc/hpf (0-5)
== END | disposition home or self-care (01) ==
LOC: LAB 14:32
PROVIDERS: ATTEND Internal Medicine
DX: Z01.818 Encounter for other preprocedural examination (principal); M47.814 Spondylosis without myelopathy or radiculopathy, thoracic region

== ENCOUNTER → 2025-05-27 | Outpatient (CLI) | payer OTHER | END | disposition home or self-care (01) | LOC: US 04-14 14:30 | PROVIDERS: ATTEND Internal Medicine | DX: N50.812 Left testicular pain (principal) ==

== ENCOUNTER → 2025-06-09 | Outpatient (CLI) | payer OTHER | END | disposition home or self-care (01) | LOC: RAD 11:25 | PROVIDERS: ATTEND Internal Medicine | DX: M17.0 Bilateral primary osteoarthritis of knee (principal) ==